=== PATIENT | female | born 1945 | race Caucasian/White ===

== ENCOUNTER 2024-02-02 11:17 | Emergency (ER) | payer MEDICARE, SELFPAY ==
[2024-02-02 11:18] VITALS: BP 145/56; PULSE 61; RESP 19; TEMP 36.4; O2SAT 98; BMI 25.4
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
[2024-02-02] MEDS: Lidocaine 5% Patch 1 PATCH TOPICAL (11:48)
--- NOTE | 2024-02-02 11:51 | ED.RN ---
UNABE TO SCAN MEDS D/T SCANNER NOT WORKING
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
[2024-02-02 12:58] VITALS: O2SAT 94
[2024-02-02] MEDS: Ibuprofen 200 MG Tablet 400 MG PO (13:04)
[2024-02-02 13:06] VITALS: BP 94/59; PULSE 62; RESP 16; O2SAT 96
[2024-02-02 14:29] VITALS: BP 139/88; PULSE 91; RESP 16; TEMP 36.4; O2SAT 98
== END 2024-02-02 14:30 | disposition home or self-care (01) ==
PROVIDERS: Emergency Provider Emergency Medicine; Visit Provider Emergency Medicine
DX: S22.41XA Multiple fractures of ribs, right side, initial encounter for closed fracture (principal); M25.511 Pain in right shoulder; V47.6XXA Car passenger injured in collision with fixed or stationary object in traffic accident, initial encounter; Y92.410 Unspecified street and highway as the place of occurrence of the external cause; Z87.891 Personal history of nicotine dependence
CPT/HCPCS: 71250; 99282